=== PATIENT | female | born 1935 | race African-American/Black ===

== ENCOUNTER 2018-01-17 08:12 | Observation (INO) ==
[2018-01-17] MEDS ORDERED: LORazepam 2 MG/1 ML VIAL IV STA (09:01)
[2018-01-17] MEDS ORDERED: MECLIZINE 25 MG TABLET PO STA (09:01)
[2018-01-17 09:55] LABS: Basophils % 0.2 % (0.0-0.8); Eosinophils % 0.1 % (0.00-10.9); Hematocrit 36.7 VOL% (35.7-47.0); Hemoglobin 12.4 GM/DL (12.0-16.0); Immature Granulocytes % 2.7 %; Immature Granulocytes Absolute 0.53 #; Lymphocytes # 1.5 10*3/uL (1.4-4.0); Lymphocytes % 7.8 % (21.3-54.2); Mean Corpuscular HGB Conc 33.8 GM/DL (32-36); Mean Corpuscular Hemoglobin 27 PG (27-34); Mean Corpuscular Volume 79.8 FL (87-102); Mean Platelet Volume 10.7 FL (9.6-12.0); Monocytes % 10.1 % (1.7-12.7); Neutrophils # 15.4 10*3/uL (1.4-7.4); Neutrophils % 79.1 % (38.7-73.9); Platelet Count 347 T/CUMM (130-400); Red Cell Distribution Width 13.8 % (9.3-17.3); White Blood Count 19.5 T/CUMM (4-12)
[2018-01-17 10:21] LABS: Osmolality,Calculated 286.8 MOS/KG (273-304); Potassium 4.3 MMOL/L (3.5-5.1)
[2018-01-17 10:45] LABS: Hypochromasia 1+; Lymphocytes 4 % (20-55); Ovalocytes Slight; Platelet Estimate Adequate; Segmented Neutrophils 88 % (50-85); Total Cells Counted 100
[2018-01-17] MEDS ORDERED: ONDANSETRON 4 MG/2 ML VIAL IV PRN (11:56)
[2018-01-17] MEDS ORDERED: GLUCAGON 1 MG VIAL IM PRN (11:56)
[2018-01-17] MEDS ORDERED: ACETAMINOPHEN 325 MG TABLET PO PRN (11:56)
[2018-01-17] MEDS ORDERED: DEXTROSE 50% 25 GM/50 ML VIAL IV PRN (11:56)
[2018-01-17] MEDS: INSULIN LISPRO 100 UNIT/ML SUBCUT SCH ×3 (12:18→21:28)
[2018-01-17] MEDS: SODIUM CHLORIDE 0.9% 1,000 ML IV SCH ×2 (12:19→21:10)
[2018-01-17 12:26] LABS: Apearance,Urine CLEAR (Clear); Bilirubin,Urine Negative (Negative); Blood, Urine Negative (Negative); Glucose,Urine (UA) 150 mg/dL (Negative); Ketones,Urine Negative (Negative); Nitrite,Urine Negative (Negative); Protein,Urine Negative; RBC,Urine 1 /HPF (0-4); Squamous Epithelial Cell,Urine Occasional /HPF (0-10); Urine Color Straw (Yellow); Urine Specific Gravity 1.008 (1.001-1.035); Urine Urobilinogen < 2.0 EU/DL (0.2-1.0); WBC,Urine 5 /HPF (0-6)
[2018-01-17] MEDS: ASPIRIN EC 81 MG TABLET PO SCH (16:45)
[2018-01-17] MEDS: levETIRAcetam 500 MG TABLET PO SCH (21:26)
[2018-01-17] MEDS: METOPROLOL TARTRATE 25 MG TABLET PO SCH (21:27)
[2018-01-17] MEDS: SIMVASTATIN 10 MG TABLET PO SCH (21:27)
[2018-01-17] MEDS: DOCUSATE SODIUM 100 MG CAPSULE PO SCH (21:27)
[2018-01-17] MEDS: DONEPEZIL 5 MG TABLET PO SCH (21:27)
[2018-01-18] MEDS: SODIUM CHLORIDE 0.9% 1,000 ML IV SCH ×2 (04:28→16:00)
[2018-01-18 06:17] LABS: Basophils % 0.2 % (0.0-0.8); Eosinophils % 0.1 % (0.00-10.9); Hematocrit 31.1 VOL% (35.7-47.0); Hemoglobin 10.5 GM/DL (12.0-16.0); Immature Granulocytes % 1.9 %; Immature Granulocytes Absolute 0.27 #; Lymphocytes # 1.8 10*3/uL (1.4-4.0); Lymphocytes % 12.6 % (21.3-54.2); Mean Corpuscular HGB Conc 33.8 GM/DL (32-36); Mean Corpuscular Hemoglobin 27 PG (27-34); Mean Corpuscular Volume 78.9 FL (87-102); Mean Platelet Volume 10.2 FL (9.6-12.0); Monocytes # 1.7 10*3/uL (0.11-0.8); Monocytes % 11.8 % (1.7-12.7); Neutrophils # 10.7 10*3/uL (1.4-7.4); Neutrophils % 73.4 % (38.7-73.9); Platelet Count 287 T/CUMM (130-400); Red Blood Count 3.94 MC/CUMM (3.8-5.5); White Blood Count 14.5 T/CUMM (4-12)
[2018-01-18 06:54] LABS: Osmolality,Calculated 286.3 MOS/KG (273-304); Potassium 4.3 MMOL/L (3.5-5.1); Thyroid Stimulating Hormone 0.874 uIU/ml (0.358-3.74)
[2018-01-18] MEDS: PANTOPRAZOLE 40 MG TABLET PO SCH (09:44)
[2018-01-18] MEDS: CHOLECALCIFEROL 1,000 UNIT TABLET PO SCH (09:44)
[2018-01-18] MEDS: sitaGLIPtin 25 MG TABLET PO SCH (09:45)
[2018-01-18] MEDS: METOPROLOL TARTRATE 25 MG TABLET PO SCH ×2 (09:45→20:34)
[2018-01-18] MEDS: levETIRAcetam 500 MG TABLET PO SCH ×2 (09:46→20:34)
[2018-01-18] MEDS: CLOPIDOGREL 75 MG TABLET PO SCH (09:48)
[2018-01-18] MEDS: amLODIPine 5 MG TABLET PO SCH (09:50)
[2018-01-18] MEDS: ASPIRIN EC 81 MG TABLET PO SCH (09:50)
[2018-01-18] MEDS: INSULIN LISPRO 100 UNIT/ML SUBCUT SCH ×4 (09:51→20:37)
[2018-01-18] MEDS: DOCUSATE SODIUM 100 MG CAPSULE PO SCH ×2 (09:51→20:34)
[2018-01-18] MEDS: DONEPEZIL 5 MG TABLET PO SCH (20:34)
[2018-01-18] MEDS: SIMVASTATIN 10 MG TABLET PO SCH (20:34)
[2018-01-19] MEDS: INSULIN LISPRO 100 UNIT/ML SUBCUT SCH (07:47)
[2018-01-19 08:17] VITALS: BP 118/61
[2018-01-19] MEDS: ASPIRIN EC 81 MG TABLET PO SCH (09:12)
[2018-01-19] MEDS: sitaGLIPtin 25 MG TABLET PO SCH (09:12)
[2018-01-19] MEDS: CHOLECALCIFEROL 1,000 UNIT TABLET PO SCH (09:12)
[2018-01-19] MEDS: METOPROLOL TARTRATE 25 MG TABLET PO SCH (09:13)
[2018-01-19] MEDS: DOCUSATE SODIUM 100 MG CAPSULE PO SCH (09:13)
[2018-01-19] MEDS: CLOPIDOGREL 75 MG TABLET PO SCH (09:13)
[2018-01-19] MEDS: amLODIPine 5 MG TABLET PO SCH (09:13)
[2018-01-19] MEDS: SODIUM CHLORIDE 0.9% 1,000 ML IV SCH (09:13)
[2018-01-19] MEDS: PANTOPRAZOLE 40 MG TABLET PO SCH (09:13)
[2018-01-19] MEDS: levETIRAcetam 500 MG TABLET PO SCH (09:13)
[2018-01-19 10:15] LABS: Basophils % 0.2 % (0.0-0.8); Eosinophils # 0.2 10*3/uL (0.0-0.87); Eosinophils % 1.5 % (0.00-10.9); Hematocrit 35.3 VOL% (35.7-47.0); Hemoglobin 11.5 GM/DL (12.0-16.0); Immature Granulocytes % 2.2 %; Immature Granulocytes Absolute 0.24 #; Lymphocytes % 17.9 % (21.3-54.2); Mean Corpuscular HGB Conc 32.6 GM/DL (32-36); Mean Corpuscular Hemoglobin 27 PG (27-34); Mean Corpuscular Volume 82.1 FL (87-102); Mean Platelet Volume 10.3 FL (9.6-12.0); Monocytes # 1.5 10*3/uL (0.11-0.8); Neutrophils % 64.2 % (38.7-73.9); Platelet Count 298 T/CUMM (130-400); Red Cell Distribution Width 14.3 % (9.3-17.3)
[2018-01-19 10:55] LABS: Calcium 7.8 MG/DL (8.5-10.1); Osmolality,Calculated 285.4 MOS/KG (273-304); Potassium 4.2 MMOL/L (3.5-5.1)
== END 2018-01-19 11:52 | disposition home or self-care (01) ==
LOC: N.EDINP 08:12 → N.ED 08:12 → N.EDINP 13:59 → N.2E 14:10
PROVIDERS: ADMIT Family Medicine; ATTEND Family Medicine